=== PATIENT | male | born 1950 | race Caucasian/White ===

== ENCOUNTER 2016-12-11 09:08 | Inpatient (IN) | payer MEDICARE, BC ==
[2016-12-08 14:31] LABS: HEMOGLOBIN 11.3 g/dL (13.6-17.8)
[2016-12-08 14:33] LABS: HEMATOCRIT 33.7 % (40.0-51.0)
[2016-12-08 14:51] LABS: BUN (BLOOD UREA NITROGEN) 18 MG/DL (6-23); CALCIUM, SERUM 9.2 MG/DL (8.5-10.4); CHLORIDE, SERUM 101 MMOL/L (96-112); CO2 (CARBON DIOXIDE) 30 MMOL/L (24-34); CREATININE 1.39 MG/DL (0.70-1.30); GFR AFRICAN AMERICAN 61 ML/MIN (>=60); GFR NON AFRICAN AMERICAN 52 ML/MIN (>=60); GLUCOSE, SERUM 236 MG/DL (60-99); POTASSIUM, SERUM 4.2 MMOL/L (3.5-5.3); SODIUM, SERUM 137 MMOL/L (135-148)
--- NOTE | ~2016-12-11 | OP ---
Record Of Operation [facility] [address] [place]. [address] NAME: SINTIA SHELBY : 50 STATUS : ADM IN PAT#: [id number] AGE: 66 ADM/REG DATE : 12/11/16 MR#: [id number] REPORT SERV DATE: 12/11/16 DICTATED BY: JENIFER CRUZ DATE: 12/11/16 REPORT STATUS : Draft TRANSCRIBED BY: MODL DATE: 12/11/16 DATE OF PROCEDURE: 12/11/2016 ATTENDING: Dr. Cruz. STAFF AUDITOR: Hugh. PREPROCEDURE DIAGNOSIS: Grade 3 right carotid stenosis, asymptomatic. POSTPROCEDURE DIAGNOSIS: Grade 3 right carotid stenosis, asymptomatic. PROCEDURE PERFORMED: Right carotid endarterectomy with patch angioplasty. ANESTHETIC: General. SPECIMENS: Plaque. BLOOD LOSS: 75 mL. COMPLICATIONS: None. INDICATIONS: Sintia Shelby is 66 years old, has right carotid stenosis grade 3. He was offered endarterectomy for stroke risk reduction. Risks, benefits, and alternatives were discussed. He understood and wished to proceed. OPERATIVE COURSE: The patient was brought to the operating room and placed in the supine position on the operating room table. The patient had general anesthetic without complications. Right neck and chest were prepped and draped in a sterile fashion. A time- out was performed. Identified the correct patient, procedure, and site. We began by making incision on the anterior neck. We extended this cephalad and caudad along the anterior border of the sternocleidomastoid. We deepened the incision with cautery and divided the platysma muscle. We then dissected along the medial border of the sternocleidomastoid and retracted it laterally. We found the jugular vein. We dissected out the facial vein and divided it between ligatures. We then dissected it and encircled it with an umbilical tape and Cachorro tourniquet. We then dissected cephalad and identified the internal and external carotid arteries. We separately controlled these with vessel loops. We identified the vagus nerve and hypoglossal nerves and kept them out of harm's way at all time. Going toward dissection, we did identify 2 large lymph nodes that were dissected and sent off as permanent specimen. Once the carotid was controlled, we gave IV heparin and allowed adequate time for circulation. We then allowed the patient's blood pressure to go 20 points higher than baseline. We then clamped the internal and external and common carotid arteries, and we made an anterolateral arteriotomy and completed it cephalad to the internal carotid and caudad into the common carotid. There were no changes before, during, or after on EEG monitoring. We then endarterectomized the vessel, transecting the plaque proximally, everting it from the external carotid and then feathering it from the internal carotid. We then picked off smooth muscle fibers remaining on the endarterectomized surface. We then Record Of Operation [address] [place]. [address] NAME: SINTIA SHELBY : 50 STATUS : ADM IN PAT#: [id number] AGE: 66 ADM/REG DATE : 12/11/16 MR#: [id number] REPORT SERV DATE: 12/11/16 DICTATED BY: JENIFER CRUZ DATE: 12/11/16 REPORT STATUS : Draft TRANSCRIBED BY: KIA DATE: 12/11/16 brought up a bovine pericardial patch and sewed it into place using running 6-0 Prolene suture. Prior to completing the patch, the internal and external carotid were retrograde flushed. The common carotid was antegrade flushed and the system was flushed with heparinized saline. We completed the patch and released the clamps to the external followed by the common carotid artery. After several beats of the cardiac cycle, the patient's blood pressure was brought down to baseline and we released the clamp to the internal. We then examined the repair with the SonoSite ultrasound. It appeared that there was a flap at the distalmost aspect of the endarterectomy. We brought the patient's blood pressure back up and re-clamped all vessels and we opened the patch. We identified the area of concern. We removed the piece of tissue that had caused the flap. We also tacked down the remainder of the distal endpoint with 7-0 Prolene suture. We then irrigated out the repair and we repaired the patch using 6-0 Prolene suture in a running fashion. Prior to completion again, the vessels were flushed and flushed with heparinized saline. We then released the clamps once more to the external and common carotid arteries and after several beats of the cardiac cycle, we released the clamp to the internal. Repeat ultrasound demonstrated no residual flap and excellent appearing endarterectomy. We then irrigated the wound. We sewed the sternocleidomastoid over the repair with an interrupted Vicryl suture. The platysmal layer was closed with interrupted Vicryl suture. The skin was closed with 4-0 subcuticular Monocryl and Dermabond. The patient was then allowed to awaken, he awakened and moved all extremities to command. He was in stable condition and was sent to PACU in that condition. JSH/MODL Jenifer Cruz MD / [id number] CC: Jenifer Cruz MD
[~2016-12-11 09:08] MED LIST: ANDROGEL1.25 GM TOP; B121000P IM; CARDIZEM LA360 MG PO; CARDU4 PO; CARDURA8 MG PO; CELEBREX2 PO; COREG3 PO; COREG6 PO; DIABETA5 PO; ENDOCET1 TA3 PO; FERROUS SULF325 M1 PO; FIORICET 50-301 EACH PO; FLEXERIL5 MG PO; FLONASE NAS; GLUCOPHAGE1000 MG PO; HEMATINIC PL PO; HEMATINIC/FA PO; HEMOCYTET PO; HYOMAX-SL0.125 MG PO; JANUVIA100 MG PO; KLONO2 PO; LANTUS SC; LEVSINTAB SL; LIPITOR20 PO; LOM PO; LORCET PO; MAX25 PO; METHOC500B PO; NEUR600 PO; NEXIUM40 PO; NITROMIST400 MCG SL; PEPTO BISMOL LIQ1 ML PO; PERCOCET 10/3251 TAB PO; PLAVIX PO; PRIN10 PO; PROZAC PO; SINGULAIR1 PO; TEKTURNA300 MG PO; TEVETEN600 MG PO; TRILIPIX135 MG PO; VIAGRA100 MG PO; VIBRATAB100 MG PO; VITAMIN D2000 UNIT PO; VITAMIN D31000 UNIT PO; [UNRECOGNIZED DRUG - OTHER] PO
[2016-12-12] MEDS ORDERED: NORCO1 TA1 PO (18:11)
== END 2016-12-12 18:40 | disposition home or self-care (01) | DRG 39 ==
LOC: SDC/OF 09:08 → PACU 14:02 → CVICU 14:57
PROVIDERS: Student in an Organized Health Care Education/Training Program
PROC: 03CK0ZZ Extirpation of Matter from Right Internal Carotid Artery, Open Approach (ICD-10-PCS; principal; 2016-12-11 10:45)
DX: I65.21 Occlusion and stenosis of right carotid artery (principal); I12.9 Hypertensive chronic kidney disease with stage 1 through stage 4 chronic kidney disease, or unspecified chronic kidney disease; E11.9 Type 2 diabetes mellitus without complications; Z79.899 Other long term (current) drug therapy; Z90.49 Acquired absence of other specified parts of digestive tract; Z98.890 Other specified postprocedural states; Z82.3 Family history of stroke; Z79.82 Long term (current) use of aspirin; Z79.84 Long term (current) use of oral hypoglycemic drugs; Z79.02 Long term (current) use of antithrombotics/antiplatelets; N18.2 Chronic kidney disease, stage 2 (mild)
CPT/HCPCS: 80048; 82962; 85014; 85018; 87641; 88304; 88305; 88311; 93005; A9270-GY; C1768; J0360; J0690; J2250; J2270; J2370; J2405; J3010

== ENCOUNTER 2016-12-20 22:43 | Inpatient (IN) | payer MEDICARE, BC ==
--- NOTE | ~2016-12-20 | CN ---
Consultation Report [facility] [address] [place]. [address] NAME: SINTIA SHELBY : 50 STATUS : ADM Court PAT#: [id number] AGE: 66 ADM/REG DATE : 12/21/16 MR#: [id number] REPORT SERV DATE: 12/22/16 DICTATED BY: YUDITH CHO IV DATE: 12/21/16 REPORT STATUS : Draft TRANSCRIBED BY: MODL DATE: 12/21/16 PULMONARY CONSULTATION. DATE OF CONSULTATION: 12/21/2016 REQUESTING PHYSICIAN: Dr. Cooley. REASON FOR REQUEST: Pulmonary infiltrates and hypoxemia. HISTORY OF PRESENT ILLNESS: History is obtained from the records and from the patient. Of note, there is some discrepancies between the admission H and P and what the patient is currently telling me. The patient is a 66-year-old male with a history of peripheral arterial disease, coronary artery disease, diabetes mellitus, hypertension, elevated cholesterol, obstructive sleep apnea, noncompliant with CPAP, reflux disease, who was admitted with dry cough, shortness of breath, questionable fever with pulmonary infiltrates noted on chest CT scan. The patient recently underwent a right carotid endarterectomy. At home, he developed a dry, predominantly nocturnal, nonproductive cough that had previously occurred and resolved when he kept the head of his bed more than 30 to 45 degrees. He remarked that he had fevers at home up to 101 on the admission H and P though currently denies fevers, chills, or sweats. He did have increasing shortness of breath without peripheral edema, which prompted his presentation to the emergency room. There a chest CT scan demonstrated patchy infiltrates with small right effusion for which he was placed on healthcare-associated pneumonia coverage. His blood pressure was markedly elevated for which his medications have been adjusted. The patient clinically improved. His oxygenation has improved as well. The patient does relate that he does not normally monitor blood pressure; however, it was in the 190 systolic at home and had delayed his discharge following his carotid surgery for blood pressure control. The patient is not on bronchodilator medications at home nor he is on supplemental oxygen. He has had pulmonary function studies in the past which he states were normal. The patient carries a diagnosis of obstructive sleep apnea of unclear severity. He discontinued CPAP when he started raising the head of his bed. He has not followed up with his sleep physician in several years. PULMONARY HISTORY: Remarkable for no history of childhood asthma or known adult obstructive lung disease. He has had pneumonia in the past. He is a [id number] smoker having quit at the age of 35. 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 He is up to date on his pneumococcal and influenza vaccinations. PAST MEDICAL HISTORY: Remarkable for: 1. Peripheral artery disease. 2. Coronary artery disease. 3. Diabetes mellitus. 4. Hypertension. Consultation Report [address] [place]. [address] NAME: SINTIA SHELBY : 50 STATUS : ADM Court PAT#: [id number] AGE: 66 ADM/REG DATE : 12/21/16 MR#: [id number] REPORT SERV DATE: 12/22/16 DICTATED BY: YUDITH CHO IV DATE: 12/21/16 REPORT STATUS : Draft TRANSCRIBED BY: KIA DATE: 12/21/16 5. Elevated cholesterol. 6. Obstructive sleep apnea, noncompliant with CPAP. 7. Reflux disease. SURGERIES: He has had bilateral carotid endarterectomies. He has had cardiac stents. He has had bilateral rotator cuff surgeries. He has had bilateral carpal tunnel surgeries. He has had bilateral cataract surgeries. He had lumbar and cervical spinal surgery. ALLERGIES: NO KNOWN DRUG ALLERGIES. CURRENT MEDICATIONS: The patient is on Cardizem 360 mg at bedtime, Cardura 4 mg daily, Coreg 12.5 mg twice a day, DuoNeb four times a day, vancomycin per pharmacy, Klonopin 2 mg at bedtime, Lipitor 20 mg at bedtime, Lofibra 134 mg at bedtime, Maxipime 1 g q.6 hours, Neurontin 800 mg every eight hours, level two insulin sliding scale, Plavix 75 mg daily, Protonix 40 mg twice a day, Prozac 20 mg three times a day, and vitamin D daily. SOCIAL HISTORY: Remarkable for the previous tobacco use as above. He drank alcohol until 1986. He had used marijuana in his youth. He is , has three children. FAMILY HISTORY: Remarkable for mother with stroke and hypertension. Father of old age. REVIEW OF SYSTEMS: 14 systems reviewed. Pertinent positives as noted above. PHYSICAL EXAMINATION: GENERAL: This is an obese, elderly male, in no acute distress. He is on supplemental oxygen. VITAL SIGNS: Temperature is 98.2, pulse is 75, respiratory rate is 20, saturation 96% on 3 L, blood pressure is 164/74. HEENT: Normocephalic, atraumatic. Extraocular movements are intact. Pupils reactive to light. Sclerae and conjunctivae normal. He has a nasal cannula in place. He has a Mallampati 4 airway with marked narrowing of the posterior pharyngeal space. NECK: Without any palpable lymphadenopathy or thyromegaly. He has a left carotid endarterectomy scar and a healing incision site on the right. CHEST: The patient has symmetrically decreased breath sounds with a normal expiratory phase. There are some minimal bibasilar inspiratory crackles. No wheezes or rhonchi are noted. CARDIOVASCULAR: Jugular venous pulsations are difficult to elicit. His right carotid is not examined because of tenderness, left demonstrates 1+ carotid upstrokes with a mild bruit. He has a distant regular S1, S2 with no clear murmur or S3. Peripheral pulses are diminished. ABDOMEN: Surgical scars are noted. Obese, soft. There are hypoactive bowel sounds. No palpable hepatosplenomegaly or masses. EXTREMITIES: Demonstrate some mild venous stasis changes. No cyanosis, clubbing, or palpable cords. Consultation Report [facility] [id number] [facility] [place]. [address] NAME: SINTIA SHELBY : 50 STATUS : ADM Court PAT#: [id number] AGE: 66 ADM/REG DATE : 12/21/16 MR#: [id number] REPORT SERV DATE: 12/22/16 DICTATED BY: YUDITH CHO IV DATE: 12/21/16 REPORT STATUS : Draft TRANSCRIBED BY: KIA DATE: 12/21/16 NEUROLOGIC: The patient is able to move all extremities. Strength is 5/5 and sensation intact to light touch. LABORATORY DATA: Chest CT scan demonstrates a very small right pleural effusion. There are some patchy, almost nodular infiltrates with some interlobular septal thickening throughout both lung mistry, more on the right than the left. This is in a different pattern than his abdominal CT scan in 2016. There is some small adenopathy. There is a paraesophageal thickening with material in the esophagus fpc up to the hemithorax. CBC: Hemoglobin 9.5, hematocrit 27.9, platelet count was 340,000, white blood cell count was 10.4. Procalcitonin level was 0.01. Chemistry: Sodium 139, potassium 3.6, chloride 106, bicarb 28, BUN 9, creatinine 0.95, glucose of 163, mag of 1.9, and phos of 2.1. TSH was 1.55. Blood gas pH 7.46, pCO2 of 37, pO2 of 58 on room air. ASSESSMENT AND PLAN: 1. Respiratory. No clear history of chronic obstructive pulmonary disease with the patient reporting normal pulmonary function studies in the past. I would treat for atypical pneumonia as noted below, though I do not feel that the healthcare-associated coverage is required. The reason for the infiltrates and small effusion may be secondary to diastolic dysfunction with a markedly elevated blood pressure and/or aspiration. Oxygen will be titrated to maintain saturation in the 90% to 94% range. X- ray will be obtained Wednesday to evaluate for improvement. We discussed the need for him to be re-evaluated for his obstructive sleep apnea on CPAP particularly with his poorly controlled blood pressure. 2. Renal. We will replace the patient's potassium and phos. 3. Infectious Disease. We will add Levaquin 750 mg daily. Would discontinue the vancomycin and likely the cefepime tomorrow. May repeat procalcitonin level on Wednesday. 4. Cardiovascular. The patient's blood pressure has been poorly controlled at home. It is somewhat improved now. Medications adjustments provided as needed. BNP will be obtained. 5. Gastrointestinal. Head of bed at 45 degrees. The patient is on Protonix and GI has been consulted with the thickened esophagus. Thank you for consulting us. We will follow the patient with you. JOMAR/KIA Yudith Cho IV, M.D. / [id number] CC: Consultation Report [address] [place]. [address] NAME: SINTIA SHELBY : 50 STATUS : ADM Court PAT#: [id number] AGE: 66 ADM/REG DATE : 12/21/16 MR#: [id number] REPORT SERV DATE: 12/22/16 DICTATED BY: YUDITH CHO IV DATE: 12/21/16 REPORT STATUS : Draft TRANSCRIBED BY: MODL DATE: 12/21/16 Samantha Cooley M.D.
--- NOTE | ~2016-12-20 | CN ---
Consultation Report [facility] [address] [place]. [address] NAME: SINTIA SHELBY : 50 STATUS : ADM IN [facility]#: [id number] AGE: 66 ADM/REG DATE : 12/22/16 MR#: [id number] REPORT SERV DATE: 12/23/16 DICTATED BY: ELOY PANTOJA DATE: 12/23/16 REPORT STATUS : Draft TRANSCRIBED BY: MODL DATE: 12/23/16 GI CONSULTATION DATE OF CONSULTATION: 12/22/2016 REASON FOR CONSULTATION: Abnormal CT scan. HISTORY OF PRESENT ILLNESS: Mr. Shelby is a 66-year-old morbidly obese male with a history of coronary artery disease, status post stent placement and recent left carotid endarterectomy. He had been admitted to [facility] with shortness of breath, fever, and chills. He was found to have pneumonia at that time and was treated with antibiotics and sent home. He had also had some nausea and vomiting as well and had workup including an ultrasound, which showed gallbladder wall thickening without any fluid or stranding. No stones, and HIDA scan was normal. On this admission, he presented with dyspnea and found to have pneumonia again, but had an abnormal CT scan, which showed thickening in the distal esophagus. He denies any dysphagia or impact sensation. No nausea or vomiting. No abdominal pain. PAST MEDICAL HISTORY: Coronary artery disease, CVA, hypertension, diabetes. PAST SURGICAL HISTORY: Coronary stent placement, left carotid endarterectomy. SOCIAL HISTORY: Remote tobacco use. Denies any alcohol or drug use. FAMILY HISTORY: Noncontributory. MEDICATIONS: Reviewed. ALLERGIES: REVIEWED. PHYSICAL EXAMINATION: VITAL SIGNS: Patient is afebrile. His vital signs are stable. GENERAL: The patient is awake, alert, oriented x3. Well developed, well nourished, obese, in no acute distress. HEENT: Atraumatic, normocephalic. Anicteric. Mucous membranes moist. CARDIAC: S1, S2. CHEST: Clear. ABDOMEN: Obese, soft, protuberant, but nondistended. Bowel sounds normoactive. LABORATORY DATA: Showed WBC 11.8, hemoglobin 9.5, hematocrit 28.7, platelets 362, MCV is 90.2. Sodium 138, potassium 3.8, chloride 105, bicarb 25, BUN 11, creatinine 0.89, glucose 226, and INR 1.2. Liver enzymes normal. IMPRESSION AND PLAN: Abnormal CT scan with distal esophageal thickening. Will evaluate with an EGD tomorrow and n.p.o. after midnight. I reviewed the procedure, indications, risks, Consultation Report [place] [address] [place]. [address] NAME: SINTIA SHELBY : 50 STATUS : ADM IN PAT#: [id number] AGE: 66 ADM/REG DATE : 12/22/16 MR#: [id number] REPORT SERV DATE: 12/23/16 DICTATED BY: ELOY PANTOJA DATE: 12/23/16 REPORT STATUS : Draft TRANSCRIBED BY: MODL DATE: 12/23/16 benefits, and alternatives with him. He does admit to some increased reflux, which may suggest reflux esophagitis. He is currently on PPI, reviewed optimal management and administration of PPI. Questions and concerns were addressed. CS/KIA Eloy Pantoja MD / [id number] CC: MD Kashif Simms II, M.D.
--- NOTE | ~2016-12-20 | HP ---
History And Physical [facility] [address] [place]. [address] NAME: SINTIA SHELBY : 50 STATUS : REG ER PAT#: [id number] AGE: 66 ADM/REG DATE : 12/20/16 MR#: [id number] REPORT SERV DATE: 12/21/16 DICTATED BY: ALFA YADAV DATE: 12/21/16 REPORT STATUS : Draft TRANSCRIBED BY: MODL DATE: 12/21/16 DATE OF ADMISSION: 12/20/2016 CHIEF COMPLAINT: Shortness of breath, fever, and chills. HISTORY OF PRESENT ILLNESS: This is a 66-year-old male who was recently here at [facility], underwent carotid endarterectomy on 12/10/2016. He went back home, was feeling fine, and about two to three days ago started having myalgia, fever, and chills. In the last 24 hours, his symptoms are worse and he started having shortness of breath even at rest. They decided to come to the emergency room to have it checked out. In the emergency room, initial workup revealed he had a multilobar pneumonia seen on a CTA of the chest, there was no pulmonary embolism. He also had hypoxemia on arterial blood gas done on room air, and Hospitalist Service was asked to admit him for further evaluation and treatment. At the time of my evaluation, he denied any pleuritic-type chest pain, palpitations, or orthopnea. He had no cough, hemoptysis, night sweats, or weight loss. He has not had any falls, dizziness, or loss of consciousness. He did have fever up to 101 at home along with chills. No history of nausea, vomiting, diarrhea, dysuria, hematemesis, hematochezia, or hematuria. No other history of recent travel or exposures other than those mentioned above. PAST MEDICAL HISTORY: Significant for history of recent carotid endarterectomy, diabetes mellitus type 2, coronary artery disease with stents in the past, history of CVA as well. SOCIAL HISTORY: He has worked in the past, but not in the last 20 to 25 years. He denies alcohol use or recreational drug use. He is currently retired. FAMILY HISTORY: Noncontributory. MEDICATIONS: At home were reviewed by me in the chart today and reordered by me. REVIEW OF SYSTEMS: As in the history of present illness. All other systems were reviewed in detail and are quite unremarkable. PHYSICAL EXAMINATION: GENERAL: This is a pleasant 66-year-old, not in any acute distress. HEENT: His head is atraumatic, normocephalic. He is alert, awake, and oriented to time, place, and person. His pupils are equal, reacting to light and accommodating. External ocular muscles are intact. Membranes are moist and pink. Sclerae are nonicteric. NECK: Supple with no jugular venous distention, lymphadenopathy, or thyromegaly. LUNGS: Auscultation of his lungs revealed fair to moderate air entry bilaterally with no wheezes, rubs, or crackles. Trachea was in the midline. HEART: Auscultation of his heart revealed normal rate and rhythm with no murmurs, rubs, or gallops appreciated. History And Physical [address] [address] NAME: SINTIA SHELBY : 50 STATUS : REG ER PAT#: [id number] AGE: 66 ADM/REG DATE : 12/20/16 MR#: [id number] REPORT SERV DATE: 12/21/16 DICTATED BY: ALFA YADAV DATE: 12/21/16 REPORT STATUS : Draft TRANSCRIBED BY: KIA DATE: 12/21/16 ABDOMEN: Protuberant, soft, nontender. Bowel sounds are present. There was no organomegaly. EXTREMITIES: Showed no cyanosis, clubbing, or edema. NEUROLOGIC: Grossly intact. No focal sensory or motor deficits. Higher functions appeared intact. VITAL SIGNS: His temperature today was 98.2, pulse 80, respirations 16 a minute, blood pressure was 180/73, oxygen saturations were 89% on 2 L of oxygen when he first came. LABORATORY DATA: Reviewed on the [employer] system showed a pH of 7.46 on an arterial blood gas done on room air, pCO2 was 37, pO2 of 58, and bicarb was 25.6. The CMP was essentially within normal limits with a blood glucose of 108. His troponin was 0.02. CBC showed a white blood cell count of 10,600, hemoglobin was 9.1, hematocrit 27.5, and platelet count was 277,000. His prothrombin time was 15 with an INR of 1.2 today. Urinalysis was not done today. Films of the chest x-ray and CTA of the chest were reviewed by me on the PACS today. Official radiology comments were also noted. There is multilobar airspace disease consistent with pneumonia. There is no pulmonary embolism seen. A 12-lead EKG done in the emergency room was reviewed and interpreted by me. There is normal sinus rhythm with a rate of [address] changes. IMPRESSION: 1. Shortness of breath. 2. Pneumonia, possibly healthcare-associated pneumonia. 3. Hypoxemia. 4. Anemia. 5. Hypomagnesemia. 6. Coronary artery disease with stent placement. 7. Recent carotid endarterectomy surgery. 8. Diabetes mellitus type 2. 9. History of cerebrovascular accident. PLAN: We will admit Mr. Shelby to the Hospitalist Service with telemetry for a 24-hour observation period. After cultures are drawn, we will start him on empiric IV antibiotics for healthcare-associated pneumonia. We will go ahead and get procalcitonin and lactate levels. We will also control his blood pressures with hydralazine intravenously given on an as-needed basis for systolic pressures greater than 170. His anemia may be multifactorial. We will go ahead and stool Hemoccult him and transfuse if needed. Right now, he appears to be stable. We will also start him on bronchodilator treatments, continue supplemental oxygen therapy. We will also replace magnesium at this time. Check chemistry and electrolytes in the morning and replace as needed. He will be on NovoLog insulin per sliding scale for blood sugar control. We will place him on SCDs for now until we get his stool Hemoccult back. I have discussed the above plans with the patient and his , questions were answered, and they are agreeable to the above recommendations. Hospitalist Service will be following him during his stay here. History And Physical [address] [address] NAME: SINTIA SHELBY : 50 STATUS : REG ER PAT#: [id number] AGE: 66 ADM/REG DATE : 12/20/16 MR#: [id number] REPORT SERV DATE: 12/21/16 DICTATED BY: ALFA YADAV DATE: 12/21/16 REPORT STATUS : Draft TRANSCRIBED BY: KIA DATE: 12/21/16 /KIA Alfa Yadav M.D. / [id number] CC: Kashif Garcia II, M.D.
--- NOTE | ~2016-12-20 | DS ---
Discharge Summary [facility] [address] [place]. [address] NAME: SINTIA SHELBY : 50 STATUS : DIS IN PAT#: [id number] AGE: 66 ADM/REG DATE : 12/22/16 MR#: [id number] REPORT SERV DATE: 12/26/16 DICTATED BY: ABEL MAIER DATE: 12/25/16 REPORT STATUS : Draft TRANSCRIBED BY: MODL DATE: 12/25/16 ADMISSION DATE: 12/22/2016 DISCHARGE DATE: 12/25/2016 REASON FOR ADMISSION: This is a 66-year-old male, who had come in with a chief complaint of shortness of breath, fever, and chills. He had a recent carotid endarterectomy on 12/10/2016, and when he went home 2 to 3 days after discharge began having myalgia, fever, and chills. In the emergency room, chest x-ray and CTA of the chest would reveal multilobar airspace disease consistent with pneumonia. DISCHARGE DIAGNOSES: 1. Healthcare-associated pneumonia. 2. Acute hypoxemia present on admission. 3. Diabetes, type 2. 4. Thickened esophagus with abnormal CT scan. 5. Hypertension. HOSPITAL COURSE: 1. Pneumonia. The patient was admitted and had Pulmonary consulted, Dr. Cho would see the patient. Ultimately, the patient was diagnosed with pneumonia with acute hypoxemic respiratory failure, and was placed initially on cefepime and vanc, and then had Levaquin added and then after 48 hours, the patient was deescalated to Levaquin only. He would initially have mildly elevated white cell count at 11.8, but no fever and a procalcitonin of 0.11 and 0.12. A repeat chest x-ray today would show improvement in pneumonia, and the patient completed a seven-day course of antibiotics today. The patient's O2 sat was greater than 90% on room air and did not need further orders for home oxygen, although the patient already had home oxygen from discharge from the carotid endarterectomy. 2. Thickened esophagus on admission imaging, a CTA of the chest. There would be findings of slightly thickened appearance of the mid and lower thoracic esophagus, which contain fluid likely suggesting esophagitis with reflux and recommendation was for endoscopy, for confirmation and exclude other etiologies such as neoplasm. GI, Dr. Pantoja was consulted, however, when Anesthesia came to inspect the patient for a preop clearance for the scope, they canceled the procedure as the patient was still getting over his pneumonia with hypoxemic respiratory failure, so the patient will be following up with Dr. Pantoja, outpatient and will have him follow up in two to three weeks. DISCHARGE CONDITION: Stable. DISCHARGE MEDICATIONS: 1. Cardizem 360 mg p.o. at bedtime. 2. Gabapentin 1200 mg p.o. b.i.d. 3. Klonopin 2 mg p.o. b.i.d. 4. Singulair 10 mg daily. 5. Iron/folic acid one tablet daily. 6. Trilipix or fenofibric acid 135 mg p.o. at bedtime. Discharge Summary [address] [address] NAME: SINTIA SHELBY : 50 STATUS : DIS IN PAT#: [id number] AGE: 66 ADM/REG DATE : 12/22/16 MR#: [id number] REPORT SERV DATE: 12/26/16 DICTATED BY: ABEL MAIER DATE: 12/25/16 REPORT STATUS : Draft TRANSCRIBED BY: KIA DATE: 12/25/16 7. Prinivil 20 mg p.o. b.i.d. 8. Nexium 40 mg p.o. b.i.d. 9. Cardura 8 mg p.o. daily. 10.Lipitor 20 mg p.o. at bedtime. 11.Prozac 20 mg p.o. daily. 12.Plavix 75 mg p.o. daily. 13.Lantus 30 units subcu daily. 14.Vitamin D 2000 units p.o. daily. 15. vitamin. 16.Symbicort 2 puffs inhaled b.i.d. 17.Albuterol p.r.n. 18.Flomax 0.4 mg p.o. daily. 19.Fluticasone spray, one spray nasal daily. 20.Hydralazine 50 mg p.o. t.i.d. 21.Aldactone 25 mg p.o. daily. 22.Mag-Ox 400 mg p.o. b.i.d. 23.Coreg 25 mg p.o. b.i.d. DISCHARGE PLAN: The patient discharged home. Follow up with primary care, Kashif Garcia M.D. in one to two weeks and follow up with Dr. Pantoja in two to four weeks. DICTATED BY: DOUG Garcia/TOBINL Abel Maier APN / [id number] CC: Oh Danielle II, M.D. Camille Sommer, MD Nathan Mull IV, M.D.
[~2016-12-20 22:43] MED LIST changes: +NORCO1 TA1 PO
[2016-12-20 23:15] LABS: BASOPHILS 0.2 %; BASOPHILS ABSOLUTE 0.02 10/3/uL (0.0-0.16); EOSINOPHILS 2.5 %; EOSINOPHILS ABSOLUTE 0.27 10/3/uL (0.0-0.53); ER CBC TAT 0 Hrs 04 MinsNP; HEMATOCRIT 27.5 % (40.0-51.0); HEMOGLOBIN 9.1 g/dL (13.6-17.8); IMMATURE GRANULOCYTES 0.3 %; IMMATURE GRANULOCYTES ABSOLUTE 0.03 10/3/uL (0.0-0.11); LYMPHOCYTES 18.3 %; LYMPHOCYTES ABSOLUTE 1.94 10/3/uL (0.67-4.30); MANUAL DIFF NO %; MEAN CORPUS HGB CONC 33.1 g/dL (32.0-36.0); MEAN CORPUSCULAR VOLUME 90.8 fL (80-100); MEAN PLATELET VOLUME 10.4 fL (9.2-13.0); MONOCYTES 7.7 %; MONOCYTES ABSOLUTE 0.82 10/3/uL (0.21-1.20); NEUTROPHILS ABSOLUTE 7.54 10/3/uL (2.02-8.40); PLATELET COUNT 277 10/3/uL (150-400); RBC DISTRIBUTION WIDTH 13.7 % (12.0-16.0); RED CELL COUNT 3.03 10/6/uL (4.7-6.1); WHITE BLOOD CELLS 10.6 10/3/uL (4.5-10.5)
[2016-12-20 23:21] LABS: INTERNATIONAL NORMAL RATI 1.2 UNITS (-)
[2016-12-20 23:22] LABS: PARTIAL THROMBO TIME 39.2 SEC (22.5-37.2)
[2016-12-20 23:37] LABS: BUN (BLOOD UREA NITROGEN) 11 MG/DL (6-23); CHEST PAIN PROFILE TAT 0 Hrs 26 Mins; CHLORIDE, SERUM 107 MMOL/L (96-112); CO2 (CARBON DIOXIDE) 29 MMOL/L (24-34); CREATININE 1.08 MG/DL (0.70-1.30); GFR AFRICAN AMERICAN 82 ML/MIN (>=60); GFR NON AFRICAN AMERICAN 71 ML/MIN (>=60); GLUCOSE, SERUM 108 MG/DL (60-99); POTASSIUM, SERUM 3.5 MMOL/L (3.5-5.3); SODIUM, SERUM 142 MMOL/L (135-148); TROPONIN I <0.02 NG/ML (<0.05)
[2016-12-21 01:13] LABS: HCO3 (ACTUAL BICARBONATE) 25.6 MEQ/L (23-27); INSTRUMENT SERIAL # 8087; PCO2 (CO2 TENSION) 37 MMHG (35-45); PO2 (O2 TENSION) 58 MMHG (79-93); SAMPLE Arterial; pH 7.46 (7.37-7.43)
[2016-12-21] MEDS ORDERED: ANDROGEL1.25 GM TOP (09:27)
[2016-12-21] MEDS ORDERED: FIORICET 50-301 EACH PO (09:28)
[2016-12-21] MEDS ORDERED: PHENTERMINE37.5 MG PO (09:28)
[2016-12-21] MEDS ORDERED: SYMBICORT 160/41 INH INH (09:28)
[2016-12-21] MEDS ORDERED: PRENAVITE PO (09:28)
[2016-12-21] MEDS ORDERED: FLEX PO (09:29)
[2016-12-21] MEDS ORDERED: FLOMAX4 PO (09:29)
[2016-12-21] MEDS ORDERED: PROAIR HFA INH (09:29)
[2016-12-21] MEDS ORDERED: FLONASE NAS (09:29)
[2016-12-21 11:06] LABS: BASOPHILS 0.1 %; BASOPHILS ABSOLUTE 0.01 10/3/uL (0.0-0.16); EOSINOPHILS 2.5 %; EOSINOPHILS ABSOLUTE 0.26 10/3/uL (0.0-0.53); HEMATOCRIT 27.9 % (40.0-51.0); HEMOGLOBIN 9.5 g/dL (13.6-17.8); IMMATURE GRANULOCYTES 0.3 %; IMMATURE GRANULOCYTES ABSOLUTE 0.03 10/3/uL (0.0-0.11); LYMPHOCYTES 11.3 %; LYMPHOCYTES ABSOLUTE 1.18 10/3/uL (0.67-4.30); MANUAL DIFF NO %; MEAN CORPUS HGB CONC 34.1 g/dL (32.0-36.0); MEAN CORPUSCULAR HEMOGLOB 30.4 pg (26.0-34.0); MEAN CORPUSCULAR VOLUME 89.4 fL (80-100); MEAN PLATELET VOLUME 10.9 fL (9.2-13.0); MONOCYTES 8.1 %; MONOCYTES ABSOLUTE 0.84 10/3/uL (0.21-1.20); NEUTROPHILS 77.7 %; NEUTROPHILS ABSOLUTE 8.09 10/3/uL (2.02-8.40); PLATELET COUNT 340 10/3/uL (150-400); RBC DISTRIBUTION WIDTH 13.8 % (12.0-16.0); RED CELL COUNT 3.12 10/6/uL (4.7-6.1); WHITE BLOOD CELLS 10.4 10/3/uL (4.5-10.5)
[2016-12-21 11:19] LABS: BUN (BLOOD UREA NITROGEN) 9 MG/DL (6-23); CALCIUM, SERUM 9.2 MG/DL (8.5-10.4); CHLORIDE, SERUM 106 MMOL/L (96-112); CO2 (CARBON DIOXIDE) 28 MMOL/L (24-34); CREATININE 0.95 MG/DL (0.70-1.30); GFR AFRICAN AMERICAN 96 ML/MIN (>=60); GFR NON AFRICAN AMERICAN 83 ML/MIN (>=60); GLUCOSE, SERUM 163 MG/DL (60-99); PHOSPHORUS, SERUM 2.1 MG/DL (2.5-4.5); POTASSIUM, SERUM 3.6 MMOL/L (3.5-5.3); SODIUM, SERUM 139 MMOL/L (135-148)
[2016-12-21 11:39] LABS: PROCALCITONIN 0.11 ng/mL (<0.5)
[2016-12-22 06:33] LABS: BASOPHILS 0.2 %; BASOPHILS ABSOLUTE 0.02 10/3/uL (0.0-0.16); EOSINOPHILS 1.6 %; EOSINOPHILS ABSOLUTE 0.19 10/3/uL (0.0-0.53); HEMATOCRIT 28.7 % (40.0-51.0); HEMOGLOBIN 9.5 g/dL (13.6-17.8); IMMATURE GRANULOCYTES 0.4 %; IMMATURE GRANULOCYTES ABSOLUTE 0.05 10/3/uL (0.0-0.11); LYMPHOCYTES 8.9 %; LYMPHOCYTES ABSOLUTE 1.05 10/3/uL (0.67-4.30); MEAN CORPUS HGB CONC 33.1 g/dL (32.0-36.0); MEAN CORPUSCULAR HEMOGLOB 29.9 pg (26.0-34.0); MEAN CORPUSCULAR VOLUME 90.3 fL (80-100); MEAN PLATELET VOLUME 11.3 fL (9.2-13.0); MONOCYTES 10.2 %; MONOCYTES ABSOLUTE 1.21 10/3/uL (0.21-1.20); NEUTROPHILS 78.7 %; NEUTROPHILS ABSOLUTE 9.29 10/3/uL (2.02-8.40); PLATELET COUNT 362 10/3/uL (150-400); RBC DISTRIBUTION WIDTH 13.9 % (12.0-16.0); RED CELL COUNT 3.18 10/6/uL (4.7-6.1); WHITE BLOOD CELLS 11.8 10/3/uL (4.5-10.5)
[2016-12-22 06:38] LABS: MANUAL DIFF NO %
[2016-12-22 06:49] LABS: BUN (BLOOD UREA NITROGEN) 11 MG/DL (6-23); CHLORIDE, SERUM 105 MMOL/L (96-112); CO2 (CARBON DIOXIDE) 25 MMOL/L (24-34); CREATININE 0.89 MG/DL (0.70-1.30); FERRITIN 185 NG/ML (26-388); GFR AFRICAN AMERICAN 103 ML/MIN (>=60); GFR NON AFRICAN AMERICAN 89 ML/MIN (>=60); POTASSIUM, SERUM 3.8 MMOL/L (3.5-5.3); SODIUM, SERUM 138 MMOL/L (135-148)
[2016-12-22 06:50] LABS: GLUCOSE, SERUM 226 MG/DL (60-99)
[2016-12-23 04:01] LABS: BASOPHILS 0.1 %; BASOPHILS ABSOLUTE 0.01 10/3/uL (0.0-0.16); EOSINOPHILS 3.5 %; EOSINOPHILS ABSOLUTE 0.36 10/3/uL (0.0-0.53); HEMATOCRIT 26.1 % (40.0-51.0); HEMOGLOBIN 8.6 g/dL (13.6-17.8); IMMATURE GRANULOCYTES 0.6 %; IMMATURE GRANULOCYTES ABSOLUTE 0.06 10/3/uL (0.0-0.11); LYMPHOCYTES 14.4 %; MANUAL DIFF NO %; MEAN CORPUSCULAR HEMOGLOB 29.7 pg (26.0-34.0); MEAN PLATELET VOLUME 10.6 fL (9.2-13.0); MONOCYTES 10.9 %; MONOCYTES ABSOLUTE 1.13 10/3/uL (0.21-1.20); NEUTROPHILS 70.5 %; NEUTROPHILS ABSOLUTE 7.34 10/3/uL (2.02-8.40); PLATELET COUNT 358 10/3/uL (150-400); RBC DISTRIBUTION WIDTH 13.8 % (12.0-16.0); WHITE BLOOD CELLS 10.4 10/3/uL (4.5-10.5)
[2016-12-23 04:11] LABS: ALBUMIN 2.8 G/DL (3.5-5.0); BUN (BLOOD UREA NITROGEN) 14 MG/DL (6-23); CHLORIDE, SERUM 105 MMOL/L (96-112); CO2 (CARBON DIOXIDE) 29 MMOL/L (24-34); CREATININE 0.92 MG/DL (0.70-1.30); GFR AFRICAN AMERICAN 100 ML/MIN (>=60); GFR NON AFRICAN AMERICAN 86 ML/MIN (>=60); GLUCOSE, SERUM 107 MG/DL (60-99); PHOSPHORUS, SERUM 2.7 MG/DL (2.5-4.5); POTASSIUM, SERUM 3.9 MMOL/L (3.5-5.3); SODIUM, SERUM 139 MMOL/L (135-148)
[2016-12-23 04:59] LABS: PROCALCITONIN 0.12 ng/mL (<0.5)
[2016-12-24 14:39] LABS: BASOPHILS 0.2 %; BASOPHILS ABSOLUTE 0.02 10/3/uL (0.0-0.16); EOSINOPHILS 6.5 %; EOSINOPHILS ABSOLUTE 0.64 10/3/uL (0.0-0.53); HEMOGLOBIN 9.5 g/dL (13.6-17.8); IMMATURE GRANULOCYTES 0.7 %; IMMATURE GRANULOCYTES ABSOLUTE 0.07 10/3/uL (0.0-0.11); LYMPHOCYTES 16.9 %; LYMPHOCYTES ABSOLUTE 1.65 10/3/uL (0.67-4.30); MEAN CORPUS HGB CONC 32.9 g/dL (32.0-36.0); MEAN CORPUSCULAR HEMOGLOB 29.5 pg (26.0-34.0); MEAN CORPUSCULAR VOLUME 89.8 fL (80-100); MEAN PLATELET VOLUME 10.3 fL (9.2-13.0); MONOCYTES 11.5 %; MONOCYTES ABSOLUTE 1.12 10/3/uL (0.21-1.20); NEUTROPHILS 64.2 %; NEUTROPHILS ABSOLUTE 6.28 10/3/uL (2.02-8.40); PLATELET COUNT 459 10/3/uL (150-400); RED CELL COUNT 3.22 10/6/uL (4.7-6.1); WHITE BLOOD CELLS 9.8 10/3/uL (4.5-10.5)
[2016-12-24 14:40] LABS: HEMATOCRIT 28.9 % (40.0-51.0); MANUAL DIFF NO %
[2016-12-24 14:52] LABS: % IRON SAT 10 % (20-50); BUN (BLOOD UREA NITROGEN) 19 MG/DL (6-23); CALCIUM, SERUM 9.6 MG/DL (8.5-10.4); CHLORIDE, SERUM 98 MMOL/L (96-112); CO2 (CARBON DIOXIDE) 34 MMOL/L (24-34); CREATININE 0.99 MG/DL (0.70-1.30); GFR AFRICAN AMERICAN 92 ML/MIN (>=60); GFR NON AFRICAN AMERICAN 79 ML/MIN (>=60); GLUCOSE, SERUM 119 MG/DL (60-99); IRON BINDING CAPACITY 248 MCG/DL (250-450); IRON, SERUM 26 MCG/DL (35-150); POTASSIUM, SERUM 4.1 MMOL/L (3.5-5.3); SODIUM, SERUM 135 MMOL/L (135-148)
[2016-12-25] MEDS ORDERED: COREG25 PO ×2 (13:18→13:42)
[2016-12-25] MEDS ORDERED: LEVAQUIN750 MG PO (13:38)
[2016-12-25] MEDS ORDERED: APRES50 PO (13:39)
[2016-12-25] MEDS ORDERED: MAGOX4 PO (13:41)
[2016-12-25] MEDS ORDERED: SPIRO25 PO (13:41)
== END 2016-12-25 14:50 | disposition home or self-care (01) | DRG 189 ==
LOC: ER 22:43 → CDU1 12-21 13:07 → CDU2 12-21 13:33 → 2SO 12-24 14:52
PROVIDERS: Emergency Medicine; Internal Medicine; Internal Medicine Critical Care Medicine; Internal Medicine Pulmonary Disease; Nurse Practitioner Family; Specialist
DX: J96.01 Acute respiratory failure with hypoxia (principal); J18.9 Pneumonia, unspecified organism; J44.0 Chronic obstructive pulmonary disease with (acute) lower respiratory infection; J90 Pleural effusion, not elsewhere classified; E11.51 Type 2 diabetes mellitus with diabetic peripheral angiopathy without gangrene; J44.9 Chronic obstructive pulmonary disease, unspecified; I25.10 Atherosclerotic heart disease of native coronary artery without angina pectoris; I10 Essential (primary) hypertension; E78.00 Pure hypercholesterolemia, unspecified; G47.33 Obstructive sleep apnea (adult) (pediatric); K21.0 Gastro-esophageal reflux disease with esophagitis; I87.8 Other specified disorders of veins; D64.9 Anemia, unspecified; E66.01 Morbid (severe) obesity due to excess calories; Z53.09 Procedure and treatment not carried out because of other contraindication; Y95 Nosocomial condition; Z11.9 Encounter for screening for infectious and parasitic diseases, unspecified; Z95.5 Presence of coronary angioplasty implant and graft; Z86.73 Personal history of transient ischemic attack (TIA), and cerebral infarction without residual deficits; Z91.19 Patient's noncompliance with other medical treatment and regimen; Z87.891 Personal history of nicotine dependence; Z98.890 Other specified postprocedural states; Z82.49 Family history of ischemic heart disease and other diseases of the circulatory system; Z82.3 Family history of stroke
CPT/HCPCS: 36600; 71020; 71275; 80048; 80069; 82607; 82728; 82805; 82962; 83036; 83540; 83550; 83605; 83735; 83880; 84100; 84145; 84443; 84484; 85025; 85610; 85730; 87040; 93005; 93306; 94640; 96365; 96375; 99285; A9270-GY; J0360; J0456; J0692; J1956; J2405; J3370; J3475; Q9967